=== PATIENT | female | born 1985 | race Caucasian/White ===

== ENCOUNTER → 2024-01-07 18:06 | Outpatient (REF) | payer OTHER, SELFPAY | LOC: WDC 18:06 | PROVIDERS: ATTENDING PHYSICIAN Obstetrics & Gynecology; FAMILY PHYSICIAN Physician Assistant Medical | DX: N64.4 Mastodynia (principal) | CPT/HCPCS: 77062; 77066 ==

== ENCOUNTER → 2024-01-20 08:25 | Outpatient (REF) | payer OTHER, SELFPAY | LOC: WDC 08:25 | PROVIDERS: ATTENDING PHYSICIAN Obstetrics & Gynecology | DX: R92.8 Other abnormal and inconclusive findings on diagnostic imaging of breast (principal) | CPT/HCPCS: 76642 ==